=== PATIENT | female | born 1955 | race Caucasian/White ===

== ENCOUNTER → 2017-09-26 | Outpatient (CLI) | payer BC ==
[2017-09-26 17:18] LABS: ALT/SGPT 29 U/L (12-78); AST/SGOT 19 U/L (15-37); BLOOD UREA NITROGEN 18 mg/dl (7-18); CALCIUM 8.8 mg/dl (8.5-10.1); CARBON DIOXIDE 29 mmol/L (21-32); CREATININE 0.96 mg/dl (0.60-1.20); GLUCOSE 87 mg/dl (70-99); SODIUM 139 mmol/L (136-145)
[2017-09-26 17:28] LABS: ALKALINE PHOSPHATASE 52 U/L (45-117); CHOLESTEROL 284 mg/dl (0-200); LDL CHOLESTEROL CALCULATED 192 mg/dl; TOTAL PROTEIN 7.4 gm/dl (6.4-8.2)
== END | disposition home or self-care (01) ==
LOC: C.LABBC 14:20
PROVIDERS: ATTEND Internal Medicine
DX: Z00.00 Encounter for general adult medical examination without abnormal findings (principal); E03.9 Hypothyroidism, unspecified; E78.5 Hyperlipidemia, unspecified

== ENCOUNTER 2025-04-23 09:32 | Inpatient (IN) ==
--- NOTE | 2025-04-22 08:58 | Anesthesiology Consultation ---
Date of Service April 22, 2025 Assessment & Plan (1) Encounter for pre-operative examination: Chart Review Chart Review: Acceptable Risk for Surgery and Patient NOT seen in Pre Admission Testing -Infectious Disease screening: Per PAT nursing assessment on 04/17/25. No known infectious disease contacts in past 10 days or current infectious disease symptoms. No recent travel outside the country. PCP office visit 02/18/25= "Seen to establish care... previous PCP retired... Left renal mass suspicious for renal cell cancer... plans to set up surgery for April 16. Venous insufficiency stable... Marked hyperlipidemia. Plan to repeat labs. No clinical ASCVD. Continue to encourage healthy lifestyle... Hypothyroidism... Osteopenia... IBS- constipation... FH of colon cancer. Elevated parathyroid hormone. Normal calcium level. Stable... HRT." History Surgery Operation Date: 04/23/25 10:50 Proposed Procedures p Robotic Assisted Laparoscopic Partial Nephrectomy - Left - Jigar Mejía MD Height/Weight Height: 5 ft 2 in Weight: 56.699 kg Allergies Allergy/AdvReac Type Severity Reaction Status Date / Time Sulfa (Sulfonamide Allergy Mild itching Verified 04/23/25 09:38 Antibiotics) rash cyclobenzaprine AdvReac Mild "made me Verified 04/23/25 09:38 [From Flexeril] lethargic" Medications Home Medications Medication Instructions Recorded Confirmed Last Taken cyanocobalamin (vitamin B-12) 1,000 mcg PO QAM 08/03/19 04/23/25 04/22/25 10:00 1,000 mcg tablet Biest-80/20 1 mg topical DAILY 08/05/20 04/23/25 04/22/25 06:00 Progesterone 125 mg topical HS 08/05/20 04/23/25 04/21/25 22:00 Testosterone 0.6 mg topical DAILY 08/05/20 04/23/25 04/22/25 06:00 cholecalciferol (vitamin D3) 50 5,000 unit PO HS 02/01/23 04/23/25 04/22/25 10:00 mcg (2,000 unit) capsule [id number] 5 mg-zeaxanth 1 cap PO QAM 03/15/23 04/23/25 04/18/25 1 mg-bilberry 7.5 mg-herbal capsule (Macular Health Formula) [employer] Organ+ 1 dose PO DAILY 04/17/25 04/23/25 04/18/25 Nac & Glycine 1 dose PO QAM 04/17/25 04/23/25 04/18/25 levothyroxine 50 mcg tablet 50 mcg PO QAM 04/17/25 04/23/25 04/23/25 04:00 (Synthroid) niacin 500 mg tablet 500 mg PO QAM 04/17/25 04/23/25 04/18/25 Past Medical History Medical History History of blood transfusion Per PAT nursing assessment 04/17/25- patient has remote hx of blood/platelet transfusion in the 1980s- at that time developed severe hypotension and went into anaphylaxis - had to have treatment due to perfusion issue- no known reason Kidney mass dx 2019. reason for upcoming partial nephrectomy IBS (irritable bowel syndrome) Chronic venous insufficiency Hyperlipidemia - no medications (LDL 329 on 03/27/25 PCP ordered labs) - on Crestor in the past but only agreed to take twice weekly- stopped medication on own- PCP aware Osteopenia Hyperparathyroidism Follows with PCP; normal Ca and PTH level 03/2025 labs Hypothyroidism Right-sided sensorineural hearing loss Chronic constipation Past Family History Family History Father Colorectal cancer Mother Osteoporosis Fibrocystic disease of breast Hypertension Other No family history of adverse response to anesthesia Denies family history of Ovarian cancer Prostate cancer Myocardial infarction Breast cancer Past Surgical History Surgical History History of benign breast biopsy History of colonoscopy History of tooth extraction Social History Smoking Status: Never smoker Do You Dip or Chew Tobacco: No Hx Alcohol Use: Yes Alcohol type: wine alcohol intake frequency: holidays/special occasions only Hx Substance Use: No substance use type: does not use Physical Exam Vital Signs Last Vital Signs Temp 36.6 C 04/23/25 09:50 Pulse 66 04/23/25 09:50 Resp 20 04/23/25 09:50 BP 108/58 L 04/23/25 09:50 Pulse Ox 100 04/23/25 09:50 O2 Del Method Room Air 04/23/25 09:50 Lab Results Anesthesia Preop Results Results Anesthesia Widget: WBC 4.82 K/ul (4.8-10.8) 03/27/25 Hgb 12.8 g/dl (12.0-16.0) 03/27/25 Hct 39.2 % (37.0-47.0) 03/27/25 Plt 191 K/uL (130-400) 03/27/25 Na 135 mmol/L (136-145) L 03/27/25 K 4.1 mmol/L (3.5-5.1) 03/27/25 Cl 103 mmol/L (98-107) 03/27/25 CO2 27 mmol/L (21-32) 03/27/25 BUN 27 mg/dl (6-23) H 03/27/25 Creat 0.94 mg/dl (0.6-1.2) 03/27/25 Glucose Level 94 mg/dl (70-99(Fasting)) 03/27/25 TSH 0.731 uIu/ml (0.300-4.500) 03/27/25 Blood Type Pending 04/23/25 Antibody Screen Pending 04/23/25 Testing Laboratory Results 03/27/25= URINE CULTURE: More than three types of organisms present, all moderate counts mixed probable skin manuel. Electrocardiogram Date: 04/19/25 Findings: + NSR @ (72bpm) Normal EKG per cardio Chest X-Ray Date: 04/18/25 Findings: + NAD Mild thoracic spondylosis.
[~2025-04-23 09:32] MED LIST: DEXAMETHASONE SOD INJ 4 MG/ML VIAL ONE; GLYCOPYRROLATE 0.2 MG/ML VIAL ONE; LIDOCAINE 2% 2 ML VIAL/AMP(20MG/ML) INFIL ONE; MIDAZOLAM HCL 1 MG/ML 2ML VIAL ONE; ONDANSETRON INJ 2 MG/ML 2 ML VIAL ONE; PROPOFOL IV EMULSION 10 MG/ML 20 ML VIAL IV ONE; ROCURONIUM BROMIDE 10 MG/ML 5 ML VIAL IV ONE; SUGAMMADEX SODIUM 200 MG/2 ML VIAL IV ONE
[2025-04-23] MEDS ORDERED: HYDROmorphone INJ 1 MG/ML SYRINGE IV PRN (09:47)
[2025-04-23] MEDS ORDERED: ATROPINE SULFATE 0.1 MG/ML 10ML SYR IV PRN (09:47)
[2025-04-23] MEDS: LR 15ML/HR IV SCH (10:17)
--- NOTE | 2025-04-23 10:32 | History & Physical Bridge Note ---
Date of Service April 23, 2025 History & Physical Bridge Note I have examined the patient, reviewed the History & Physical and in the interval since the performance of the History & Physical I have noted the following changes of clinical significance: no changes noted
[2025-04-23] MEDS ORDERED: MANNITOL 25% 12.5 GM/50 ML VIAL IV ONE ×3 (11:28→11:47)
[2025-04-23] MEDS ORDERED: SUGAMMADEX SODIUM 200 MG/2 ML VIAL IV ONE (11:45)
[2025-04-23] MEDS ORDERED: ROCURONIUM BROMIDE 10 MG/ML 5 ML VIAL IV ONE (12:31)
[2025-04-23] MEDS ORDERED: ESMOLOL HCL INJ 10 MG/ML 10ML VIAL IV ONE (12:32)
[2025-04-23] MEDS: MANNITOL 25% 12.5 GM/50 ML VIAL IV ONE (13:00)
[2025-04-23] MEDS ORDERED: 1.2 MICRON FILTER 1 EACH IV ONE (13:02)
[2025-04-23] MEDS: SURGICEL ABSORB HEMOSTAT 2IN X 14IN TOP ONE (13:28)
[2025-04-23] MEDS: MANNITOL 25% 12.5 GM/50 ML VIAL IV STA (13:38)
[2025-04-23] MEDS ORDERED: KETAMINE HCL 10MG/ML SYR ONE (13:41)
[2025-04-23] MEDS: TISSEEL FIBRIN SEALANT 10ML TOP ONE (13:56)
[2025-04-23] MEDS: BUPIVACAINE 0.5 % 5 MG/1 ML MPF 30ML VIAL ONE (13:56)
[2025-04-23] MEDS: FLOSEAL HEMOSTATIC MATRIX 10ML TOP ONE (13:56)
[2025-04-23] MEDS: BUPIVACAINE LIPOSOME 1.3% 266 MG/20 ML VIAL ONE (13:57)
--- NOTE | 2025-04-23 14:32 | Operative Report ---
PG Post Operative Report Pre & Post Diagnosis Operation Date: 04/23/25 10:50 Pre-Op Diagnosis: left renal mass, suspected renal cell carcinoma Post-Op Diagnosis: left renal mass, suspected renal cell carcinoma I identified the patient and participated in the time-out.: Yes Procedure Operation Date: 04/23/25 10:50 Actual Procedures p Robotic Assisted Laparoscopic Partial Nephrectomy - Left(Left) - Jigar Mejía MD Surgeon Jigar Mejía MD Hairspring Assembler Ori Cao Lauren Davidson Estimated Blood Loss 50 Findings Consistent with Post-Op Diagnosis Specimens left renal mass Description of Procedure The patient was identified in the preoperative holding area and appropriate informed consents were reviewed and completed. She was transferred to the operating suite and received appropriate preoperative antibiotics. She was placed in a [id number] left side up lateral decubitus position with the bed flexed. She was padded and braced appropriately. General anesthesia had been induced prior to positioning. Following sterile prep and drape we insufflated the abdomen by passing a Veress needle into the left upper quadrant. There were no issues with insufflation. She is a very thin woman, I marked the costal border and I marked tentative port sites which were angled slightly from medial to lateral with the most superior port essentially just off the midline under the xiphoid process the next port just slightly further lateral and approximately 8 cm inferior and third port approximately 8 cm inferior and 1 cm lateral. A supraumbilical prosthetics assistant port was also markedthis would be a 12 mm port. And a 5 mm infraumbilical port for assisting was also marked. We entered through the middle of the lateral ports with a Visiport and 5 mm 0 degree lens. Inspection revealed a healthy abdomen without any significant adhesions. All of the other port sites were inspected and that were free of adhesions so they were placed under direct vision without incident. We then docked the robot. To begin the robotic portion of the case I began to incise lateral to the colon and medialized the colon. She has very scant fat in her mesentery as well as around the kidney. The kidney itself was actually visible through the mesentery. After mobilizing the colon medially I incised between the spleen and kidney and mobilized the superior aspect of the kidney. We then turned our attention to the inferior pole of the kidney and used a combination of blunt dissection and electrocautery to dissect down and identify the gonadal vein as well as the ureter. We elevated the kidney as well as the ureter, I dissected along the anterior border of the gonadal vein until we encountered the inferior aspect of the renal vein. The renal vein was dissected circumferentially. Just superior to the renal vein we identified a solitary renal artery which was dissected circumferentially as well. After clearing the hilum, I turned my attention to exposing healthy appearing renal parenchyma circumferentially around the mass. The mass itself was quite visible as it is fairly exophytic. We dissected medial to it first followed by above the posterior aspect and superior aspect followed by the inferior and lateral aspect. I then performed an intraoperative laparoscopic ultrasound and evaluated in gauge depth of the tumor. I marked the capsule for potential incision. We gave 12.5 g of mannitol and preposition 2 renorrhaphy stitches within the hemiabdomen. These were 3-0 V-Loc sutures with a Lapra-Ty and Heme-o lock clip placed on the end. We then advanced 2 robotic bulldog clamps into the abdomen and positioned them on the fat around the kidney. 1 was a short straight and the other long straight. The short straight clamp was ultimately placed on the artery followed by the long straight across the vein. Time was marked and excision of the mass initiated. Began on the medial aspect of the tumor and progressed around the lateral border followed by the superior aspect and the most posterior aspect was left for last. Approximately 2 scissor lengths of depth were needed to be able to get under the mass itself and we were able to visualize the border of this as we dissected. Hemostasis was excellent. After the mass was entirely excised it was moved out of our immediate field of dissection to allow for space for reconstruction of the kidney. We could visualize collecting system and some vessels at the deep aspect of it however, I thought that these could be closed directly with a sliding clip technique without special suture ligation of the structures. Utilizing the preposition sutures of began at the superior aspect of the incision on the posterior lip of tissue and began to close utilizing the sliding clip technique. 1 suture was used for the top half of the incision followed by a second suture which was used for the bottom half of the incision. The closure appeared to be excellent and we elected to remove the clamps after completing the closure. Warm ischemia time was marked at 14 minutes and 50 seconds. Of note, the venous clamp was removed prior to the arterial clamp. Hemostasis was excellent. I did cauterize a small vessel injury on his fascia above the top of the kidney, otherwise there was no active bleeding or other issues. Kidney appeared to pink up appropriately and the border was free of active bleeding. We placed a sheet of Surgicel across the defect and covered it with Tisseel to reencapsulate the kidney. There was scant Gerota's fascia so I felt there was no benefit to trying to reapproximate the small amount of tissue that was present. I did try to guide the colon back to that lateral position in which it was originally located. A drain was guided through the mid robotic port. This was ultimately sutured in place with a 3-0 nylon. The specimen was collected in an Endo Catch bag and extracted through the inferior most robotic port. The 12 mm prosthetics assistant port was closed with 0 Vicryl through the fascia. The uppermost robotic port was closed with a 0 Vicryl through the fascia. The extraction site was closed in 3 layers with 0 Vicryl to reapproximate the transversalis fascia, the internal oblique, the external bleak fascia. 4-0 Monocryl's were used for the skin incisions across all incisions. A mixture of Marcaine and Exparel was used for anesthetizing the skin and fascial layers. Dermabond was placed over the incisions and a drain sponge around the drain site. The specimen was passed off the table for routine pathology. Visual inspection at the time of removal shows no evidence of invasion or injury to the specimen itself. Jef Harrell was present and scrubbed through the anne portions of the case, Patricia Chaudhari and Ori Diaz were present and scrubbed throughout the entire surgery, assisting with all portions. There were no complications and she was taken to the recovery room in stable condition. I attest to the content of the Intraoperative Record and any orders documented therein. Any exceptions are noted below.
[2025-04-23 14:57] LABS: Hematocrit (blood only) 36.0 % (37.0-47.0); Hemoglobin 11.7 g/dl (12.0-16.0); Immature Granulocytes # (auto) 0.02 K/uL (0.01-0.20); Immature Granulocytes % (auto) 0.3 %; Mean Corpuscular Hemoglobin 29.5 pg (25.0-34.0); Mean Corpuscular Volume 90.7 fL (80.0-100.0); Platelet Count 194 K/uL (130-400); RDW Standard Deviation 53.1 fL (36.4-46.3); Red Blood Count 3.97 M/uL (4.20-5.40); White Blood Count 5.89 K/ul (4.8-10.8)
[2025-04-23] MEDS: ONDANSETRON INJ 2 MG/ML 2 ML VIAL IV PRN ×2 (15:08→19:15)
[2025-04-23 15:13] LABS: Anion Gap 9.0 (3-11); Blood Urea Nitrogen 17.0 mg/dl (6-23); Calcium 8.2 mg/dl (8.6-10.3); Carbon Dioxide 24.0 mmol/L (21-32); Chloride 106.0 mmol/L (98-107); Creatinine Clr Calc Pharmacy 39.1 ml/min; Glucose 111.0 mg/dl (70-99(Fasting)); Potassium 4.3 mmol/L (3.5-5.1); Sodium 139.0 mmol/L (136-145)
--- NOTE | 2025-04-23 15:20 | Anesthesiology Progress Note ---
Date of Service April 23, 2025 Anesthesia Post Procedure Vital Signs Vital Signs: Temp Pulse Pulse Resp BP Pulse Ox O2 Del Method 04/23/25 15:10 36.5 C 65 12 128/75 98 Room Air 04/23/25 15:00 73 20 124/59 L 97 Room Air 04/23/25 14:50 76 8 L 124/73 100 Oxymask 04/23/25 14:40 60 15 114/67 100 Oxymask 04/23/25 14:30 63 16 118/67 100 Oxymask 04/23/25 14:22 37.2 C 65 19 111/64 100 Oxymask 04/23/25 09:50 36.6 C 66 20 108/58 L 100 Room Air O2 Flow Rate 04/23/25 15:10 04/23/25 15:00 04/23/25 14:50 7 04/23/25 14:40 7 04/23/25 14:30 7 04/23/25 14:22 7 04/23/25 09:50 Pain Intensity Abdomen: Pain Intensity: 2 Transfer of Care Handoff Completed per policy Notes Mental Status: alert / awake / arousable Patient Amnestic to Procedure: Yes Nausea / Vomiting: adequately controlled Pain: adequately controlled Airway Patency, RR, SpO2: stable & adequate BP & HR: stable & adequate Hydration State: stable & adequate Anesthetic Complications: no major complications apparent and Pt Satisfied with anesthetic care
[2025-04-23] MEDS: PROMETHAZINE HCL 6.25 MG in SODIUM CHLORIDE 0.9% 50 ML IV PRN (15:22)
[2025-04-23] MEDS ORDERED: HYDROmorphone INJ 0.5 MG/0.5 ML SYR IV PRN (15:58)
[2025-04-23] MEDS: SODIUM CHLORIDE 0.9% 50 ML BAG ONE (16:36)
[2025-04-23] MEDS: PROMETHAZINE HCL INJ 25 MG/ML 1 ML VIAL ONE (16:36)
[2025-04-23] MEDS: SODIUM CHLORIDE 0.9% 1,000 ML IV SCH (16:38)
[2025-04-24] MEDS: DOCUSATE SODIUM 100 MG CAP PO SCH (01:57)
[2025-04-24 06:00] LABS: Hematocrit (blood only) 34.9 % (37.0-47.0); Hemoglobin 11.2 g/dl (12.0-16.0); Immature Granulocytes # (auto) 0.02 K/uL (0.01-0.20); Immature Granulocytes % (auto) 0.3 %; Mean Corpuscular Hemoglobin 28.6 pg (25.0-34.0); Mean Corpuscular Volume 89.3 fL (80.0-100.0); Platelet Count 216 K/uL (130-400); RDW Standard Deviation 53.0 fL (36.4-46.3); Red Blood Count 3.91 M/uL (4.20-5.40); White Blood Count 7.50 K/ul (4.8-10.8)
[2025-04-24 06:22] LABS: Anion Gap 8.0 (3-11); Blood Urea Nitrogen 18.0 mg/dl (6-23); Calcium 7.7 mg/dl (8.6-10.3); Carbon Dioxide 24.0 mmol/L (21-32); Chloride 107.0 mmol/L (98-107); Creatinine Clr Calc Pharmacy 35.1 ml/min; Glucose 116.0 mg/dl (70-99(Fasting)); Potassium 4.4 mmol/L (3.5-5.1); Sodium 139.0 mmol/L (136-145)
[2025-04-24] MEDS: LEVOTHYROXINE SODIUM 50 MCG TABLET PO SCH (06:32)
[2025-04-24] MEDS: NIACIN 500 MG TAB PO SCH (08:23)
[2025-04-24] MEDS: CYANOCOBALAMIN (B-12) 500 MCG TABLET PO SCH (08:23)
--- NOTE | 2025-04-24 08:24 | Urology Progress Note ---
Date of Service April 24, 2025 Assessment & Plan (1) Kidney mass: Plan: Renal mass, suspected renal cell carcinoma status post left robotic partial nephrectomy yesterday Ambulate this morning Gradual diet advance as tolerated Pull Nixon catheter now, likely remove drain later today or tomorrow Anticipate she will stay in the hospital until tomorrow Labs all appropriate Admission and Anticipated Discharge Date Admission Date: April 23, 2025 Subjective Doing well overall Has a mild amount of nausea but no other major complaints Pain is within expected range She has not yet been out of bed Physical Exam Physical Exam: DAYA drain serosanguineous, urine clear, incisions appropriate, some drainage around her DAYA site Results & Data Vital Signs (Past 12 Hours) Vital Signs Temp Pulse Resp BP BP Pulse Ox O2 Del Method 04/24/25 07:48 36.9 C 75 14 106/61 97 Room Air 04/24/25 04:20 37.2 C 78 12 104/57 L 97 Room Air 04/23/25 23:24 37.7 C H 77 12 115/64 97 Room Air PG Care Time/CCT Total # of Minutes Spent Total Time Spent with Patient: Total time spent is greater than 50% in coordination of care (as documented) at patient's floor/unit and/or counseling patient: Coding Level of Care Code None Diagnoses Kidney mass N28.89
[2025-04-24] MEDS: HYDROmorphone INJ 0.5 MG/0.5 ML SYR IV PRN (12:42)
--- NOTE | 2025-04-25 08:23 | Urology Progress Note ---
Date of Service April 25, 2025 Assessment & Plan (1) Kidney mass: Plan Renal mass, suspected renal cell carcinoma status post left robotic partial nephrectomy 04/23/[address] Mejía. Afebrile with stable vitals. Labs today reviewed-WBC 7.08, hemoglobin 11.1, creatinine 1.09. Voiding spontaneously following catheter removal yesterday, continue to monitor. Bladder scan as needed. DAYA drain intact with serosanguineous drainage, continue to monitor. Patient with concerns of level of functioning postoperatively and feels she may need rehab. PT/OT evals ordered. Discussed with case management. Continue supportive care and pain management as needed. Encourage ambulation. Anticipate possible discharge tomorrow pending PT/OT evaluation and patient status. Patient reassessed this afternoon. Patient was having some complaints of pelvic discomfort and drainage around DAYA site. DAYA drain intact with approximately 50 mL of serosanguineous drainage. Recommend monitoring bladder scan/PVRs to ensure she is emptying. Can straight catheterize if needed. Maintain DAYA drain and monitor output. Continue supportive care and pain management as needed. Patient also expressed concerns of constipation-orders placed for MiraLAX and Dulcolax suppository PRN. Admission and Anticipated Discharge Date Admission Date: April 23, 2025 Subjective Patient seen at bedside today. She is awake and resting in bed on arrival. No acute distress. Has been voiding without issue following catheter removal yesterday. Reports it takes time to empty her bladder. Having some mild abdominal/pelvic discomfort. DAYA drain intact with serosanguineous drainage. No fevers or chills. She reports some nausea, no vomiting. Patient has concerns about level of functioning at home following discharge and feels she may need rehab. No BM and concerned about constipation. Review of Systems Constitutional: as per Subjective / HPI Genitourinary: as per Subjective / HPI Physical Exam Constitutional: no acute distress Respiratory: no respiratory distress and no labored breathing Gastrointestinal (Abdomen): Soft, non-tender. Not distended. Incisions appropriate, Dermabond intact. DAYA drain intact with serosanguineous drainage and some drainage noted on gauze dressing. Skin: Warm and dry Neurologic: moves all extremities and awake Psychiatric: A+Ox3, euthymic affect Results & Data Vital Signs (Past 12 Hours) Vital Signs Temp Pulse Resp BP BP Pulse Ox O2 Del Method 04/25/25 07:18 36.8 C 85 16 117/72 95 Room Air 04/24/25 21:06 36.7 C 70 18 129/81 97 Room Air PG Care Time/CCT Total # of Minutes Spent Total Time Spent with Patient: Total time spent is greater than 50% in coordination of care (as documented) at patient's floor/unit and/or counseling patient: Coding Level of Care Code None Diagnoses Kidney mass N28.89
[2025-04-25 10:18] LABS: Hematocrit (blood only) 34.9 % (37.0-47.0); Hemoglobin 11.1 g/dl (12.0-16.0); Mean Corpuscular Hemoglobin 28.7 pg (25.0-34.0); Mean Corpuscular Volume 90.2 fL (80.0-100.0); Platelet Count 199 K/uL (130-400); RDW Standard Deviation 52.1 fL (36.4-46.3); Red Blood Count 3.87 M/uL (4.20-5.40); White Blood Count 7.08 K/ul (4.8-10.8)
[2025-04-25 10:35] LABS: Anion Gap 4.0 (3-11); Blood Urea Nitrogen 14.0 mg/dl (6-23); Calcium 7.7 mg/dl (8.6-10.3); Carbon Dioxide 25.0 mmol/L (21-32); Chloride 108.0 mmol/L (98-107); Creatinine Clr Calc Pharmacy 38.0 ml/min; Glucose 121.0 mg/dl (70-99(Fasting)); Potassium 4.0 mmol/L (3.5-5.1); Sodium 137.0 mmol/L (136-145)
[2025-04-25] MEDS: ACETAMINOPHEN 500 MG TAB PO PRN (14:01)
[2025-04-25] MEDS: POLYETHYLENE (MIRALAX) 17 GM PACK PO PRN (16:26)
--- NOTE | 2025-04-26 09:04 | Urology Progress Note ---
Date of Service April 26, 2025 Assessment & Plan (1) Kidney mass: Plan: Postop day #3 status post left robotic partial nephrectomy Recovery seems to be on pace, she may wish to have a rehab stay and if necessary that is certainly acceptable Will remove her DAYA drain today, labs are pending but she appears to be quite stable and progressing as expected Admission and Anticipated Discharge Date Admission Date: April 23, 2025 Subjective Subjectively seems to be doing relatively well No flatus or bowel movement yet She is ambulatory She did have an evaluation for possible rehab placement she very much would like to pursue this Does not feel she is quite capable of achieving and completing her normal activities of daily living at home Labs yesterday were all stable, pending still today Modest DAYA output, serosanguineous, clear urine, she reports that she is voiding much better this morning than she was yesterday Did use a bowel suppository this morning and is hopeful for a bowel movement later today Physical Exam Physical Exam: DAYA serosanguineous Dressing covering most of her incisions neck lift at this and all incisions look very good, abdomen is soft and nontender, not particularly distended Results & Data Vital Signs (Past 12 Hours) Vital Signs Temp Pulse Resp BP Pulse Ox O2 Del Method 04/26/25 07:33 36.8 C 89 15 120/73 93 Room Air 04/25/25 22:38 36.6 C 91 H 16 118/69 95 Room Air PG Care Time/CCT Total # of Minutes Spent Total Time Spent with Patient: Total time spent is greater than 50% in coordination of care (as documented) at patient's floor/unit and/or counseling patient: Coding Level of Care Code None Diagnoses Kidney mass N28.89
[2025-04-26 11:20] LABS: Hematocrit (blood only) 34.0 % (37.0-47.0); Hemoglobin 10.8 g/dl (12.0-16.0); Mean Corpuscular Hemoglobin 28.5 pg (25.0-34.0); Mean Corpuscular Volume 89.7 fL (80.0-100.0); Platelet Count 184 K/uL (130-400); RDW Standard Deviation 50.8 fL (36.4-46.3); Red Blood Count 3.79 M/uL (4.20-5.40); White Blood Count 6.94 K/ul (4.8-10.8)
[2025-04-26 11:31] LABS: Anion Gap 3.0 (3-11); Blood Urea Nitrogen 14.0 mg/dl (6-23); Calcium 8.0 mg/dl (8.6-10.3); Carbon Dioxide 26.0 mmol/L (21-32); Chloride 109.0 mmol/L (98-107); Creatinine Clr Calc Pharmacy 38.7 ml/min; Glucose 112.0 mg/dl (70-99(Fasting)); Potassium 3.9 mmol/L (3.5-5.1); Sodium 138.0 mmol/L (136-145)
[2025-04-26 11:43] VITALS: RESP 16; TEMP 97.9; O2SAT 96
[2025-04-26 14:32] VITALS: BP 129/81; PULSE 59
--- NOTE | 2025-04-26 17:09 | Discharge Summary ---
Date of Service April 26, 2025 Admission HPI Per Admitting Provider 69-year-old female who presented for robotic assisted laparoscopic partial left nephrectomy Admission Exam Per Admitting Provider Constitutional well developed and well nourished Neck neck nontender Respiratory normal respiratory effort; no respiratory distress and does not use accessory muscles Cardiovascular Rate/Rhythm: regular rate Vessels: radial pulses present Extremities: no edema Gastrointestinal (Abdomen) Inspection/Auscultation: abdomen normal to inspection Percussion/Palpation: abdomen soft; abdomen nontender and no guarding Musculoskeletal Head/Neck/Chest: normocephalic and head atraumatic Extremities: extremities normal to inspection Skin no rashes and no lesions Trauma: no evidence of skin trauma Neurologic awake; not obtunded Speech / Cognition: normal speech Motor/Sensory: no tremor Psychiatric Orientation: alert and oriented x 3 Lymphatic no lymphadenopathy Principal Diagnosis Left renal mass Discharge Data Allergies Allergy/AdvReac Type Severity Reaction Status Date / Time Sulfa (Sulfonamide Allergy Mild itching Verified 04/23/25 09:38 Antibiotics) rash cyclobenzaprine AdvReac Mild "made me Verified 04/23/25 09:38 [From Flexeril] lethargic" Procedures Performed Operation Date: 04/23/25 10:50 Actual Procedures p Robotic Assisted Laparoscopic Partial Nephrectomy - Left(Left) - Jigar Mejía MD Hospital Course (1) Kidney mass: Total Time Total Time Spent Total Time Spent (In Minutes): 15 Discharge Plan Discharge Items Patient Disposition: Transfer Inpatient Rehab Fac Reason For Visit: Other Specified Disorders of Kidney and Ureter Discharge Diagnosis: Left renal mass, suspected renal cell carcinoma Activity: Per Instructions section Lifting: No more than 10 pounds Bathing Comment: OK to shower. No tub baths or soaks. Sexual Activity: Wait until after follow-up appointment Exercise/Sports: Wait until after follow-up appointment Driving/Machine Use: Do not drive if taking prescription pain medication. Non-emergency contact: Surgeon and Urologist Call non-emergency contact if: you have any medication questions, your symptoms worsen, your pain is not controlled, you have a fever, your wound has increased redness, your wound has increased drainage and your wound pain has increased Follow-up/Referrals: Lynn Oliva DO [Primary Care Provider] - James Diaz PA-C [Physician Chair Mender] - 05/15/25 2:30 pm Diet: Regular Addtl Attending Provider Instructions: Please take all medications as prescribed and keep all follow-ups as scheduled. Please call our office at [phone] with any questions, concerns or need to reschedule appointments for any reason. We are happy to assist you. For pain control, you can take Tylenol every 6 hours as needed. You have been prescribed a narcotic pain medication, please take this accord ing to the instructions on the label if needed. Recovering at home: We recommend having someone with you for the first few days after surgery to help care for you. It is okay to shower tomorrow. Please avoid swimming, bathing or using hot tub until incisions are well healed. Avoid driving until you are not requiring pain medication any further. Walk at least a few times a day. Increase your distance, as you feel able. Stairs in your home are okay. Please avoid strenuous or sexual activity until your follow-up. We recommend using stool softener (i.e. Colace) to prevent constipation and straining, especially the first two weeks post operatively. Call [facility] at [phone] if you experience: Chest pain or trouble breathing (call [phone] or go to the hospital). Fever of 101F or higher Symptoms of infection at incision site, including redness or swelling, warmth, or bad-smelling drainage If you are unable to urinate Pain that is not controlled with medicines Pending Studies at Discharge: Yes Stand-Alone Forms: [facility] Skilled Items Patient informed of condition?: Yes DNR: No Discharge Level of Care: Acute rehab Communicable Disease: No Discharge Prognosis: Stable Lines: None Urinary Catheter: No Medications and DC Order Prescriptions: New oxycodone 5 mg tablet 5 mg PO Q8H PRN (Reason: pain) Qty: 5 0RF ondansetron 4 mg tablet,disintegrating 4 mg PO Q8H PRN (Reason: nausea and vomiting) Qty: 7 0RF Continued Macular Health Formula 5-1-7.5 mg capsule 1 cap PO QAM cyanocobalamin (vitamin B-12) 1,000 mcg tablet 1,000 mcg PO QAM cholecalciferol (vitamin D3) 50 mcg (2,000 unit) capsule 5,000 unit PO HS Testosterone 0.6 mg topical DAILY Biest-80/20 1 mg topical DAILY Progesterone 125 mg topical HS levothyroxine [Synthroid] 50 mcg tablet 50 mcg PO QAM niacin 500 mg Tablet 500 mg PO QAM Nac & Glycine 1 dose PO QAM Bodyhealth Organ+ 1 dose PO DAILY Discharge Orders: Discharge Order (Routine); Ordered 04/26/25 Ordered By: Patricia Chaudhari Admission Data Admit Date/Time: 04/23/25 14:31 Attending Provider: Jigar Mejía Admit Provider: Jigar Mejía Primary Care Provider: Lynn Oliva Other Providers: [facility]; [facility] Other Interventions: Discharge Summary Assessment (RN) Last Done: 04/26/25 14:31 Coding Diagnoses Kidney mass N28.89
== END 2025-04-26 16:00 | DRG 658 ==
LOC: ASU 09:32 → 3E 14:31